=== PATIENT | male | born 1940 | race Caucasian/White ===

== ENCOUNTER 2020-08-24 18:20 | Emergency (ER) | payer MEDICARE ==
[2020-08-24] MEDS ORDERED: HYDROmorphone 1 MG/ML Syringe IM ONE (18:30)
--- NOTE | 2020-08-24 19:02 | EDM.PDOC ---
ED HPI GENERAL MEDICAL PROBLEM - General Chief Complaint: Upper Extremity Injury/Pain Stated Complaint: FALL INJURE RIGHT SHOULDER Time Seen by Provider: 08/24/20 18:23 Source of Information: Reports: Patient History Limitations: Reports: No Limitations - History of Present Illness INITIAL COMMENTS - FREE TEXT/NARRATIVE: Santos is an 80-year-old male presenting to the ED with deformity and pain in his right shoulder. The patient was playing pickle ball today at his local religion with friends and apparently was running back to play a live ball when he tripped falling on an outstretched right arm. He has significant deformity of the shoulder consistent with an anterior dislocation. He denies any numbness or tingling. His pain is an 8 out of 10. He has limited range of motion since the fall. Denies any other injuries. Patient does have a history significant for diabetes which he is on oral medication for, hypertension, hyperlipidemia but denies any history of smoking, heart disease, lung disease, or liver disease. He last ate a snack about 2 hours ago and last drink water about 30 minutes ago. Right Arm Pain Score (Numeric/FACES): 8 - Related Data Allergies Allergy/AdvReac Type Severity Reaction Status Date / Time lisinopril Allergy Cannot Verified 08/24/20 18:37 Remember losartan [Losartan] Allergy Cannot Verified 08/24/20 18:37 Remember Home Meds: Home Meds Citalopram [Celexa] 10 mg PO DAILY 10/07/16 [History] Hydrochlorothiazide 39.5 mg PO BID 10/07/16 [History] LORazepam 0.5 mg PO TID PRN 10/07/16 [History] Mirtazapine 7.5 mg PO DAILY 10/07/16 [History] Omeprazole 20 mg PO DAILY 10/07/16 [History] Simvastatin [Zocor] 80 mg PO ASDIRECTED 10/07/16 [History] Zolpidem Tartrate [Ambien] 10 mg PO QPM PRN 10/07/16 [History] atenoloL [Atenolol] 50 mg PO DAILY 10/07/16 [History] Past Medical History HEENT History: Reports: Impaired Vision, Other (See Below) Other HEENT History: CRVO-central retinal venous obstruction Cardiovascular History: Reports: High Cholesterol, Hypertension Musculoskeletal History: Reports: Fracture Neurological History: Reports: Migraines Psychiatric History: Reports: Depression Endocrine/Metabolic History: Reports: Diabetes, Type II - Past Surgical History HEENT Surgical History: Reports: Tonsillectomy Musculoskeletal Surgical History: Reports: Knee Replacement Social & Family History - Tobacco Use Tobacco Use Status *Q: Never Tobacco User - Caffeine Use Caffeine Use: Reports: Coffee - Recreational Drug Use Recreational Drug Use: No Review of Systems - Review of Systems Review Of Systems: See Below Constitutional: Reports: No Symptoms 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.) Ears: Reports: No Symptoms Nose: Reports: No Symptoms Mouth/Throat: Reports: No Symptoms Respiratory: Reports: No Symptoms Cardiovascular: Reports: No Symptoms GI/Abdominal: Reports: No Symptoms Genitourinary: Reports: No Symptoms Musculoskeletal: Reports: Shoulder Pain (Right shoulder) Skin: Reports: No Symptoms Neurological: Reports: No Symptoms Psychiatric: Reports: No Symptoms ED EXAM, GENERAL - Physical Exam Exam: See Below Exam Limited By: No Limitations General Appearance: Alert, Anxious, Mild Distress Head: Atraumatic, Normocephalic Neck: Normal Inspection, Supple, Non-Tender Respiratory/Chest: No Respiratory Distress, Lungs Clear, Normal Breath Sounds Cardiovascular: Normal Peripheral Pulses, Regular Rate, Rhythm, No Murmur Peripheral Pulses: 2+: Radial (L), Radial (R) Extremities: Normal Capillary Refill, Limited Range of Motion (Obvious deformity consistent with a right anterior shoulder dislocation. Significant reduction of range of motion due to pain.) Neurological: Alert, Oriented, Normal Cognition, No Motor/Sensory Deficits Psychiatric: Normal Affect, Normal Mood Skin Exam: Warm, Dry, Intact, Normal Color ED TRAUMA EXTREMITY PROCEDURES - Joint Reduction Right Shoulder Sedation: Conscious Sedation Pre-Procedure NV Status: Normal Post-Procedure NV Status: Normal Technique: Other (Allen maneuver) Number of Attempts: 1 Post-Reduction Imaging: Completely Reduced, No Fracture Seen Joint Reduction Complications: No - Splinting Right Upper Extremity Pre-Procedure NV Status: Normal Post-Procedure NV Status: Normal Splint Material: Velcro Splint Design: Other (Shoulder immobilizer) Applied & Form Fitted By: Provider, Nurse Provider Post-Splint Application NV Check: NV Status Normal, Good Position Complications: No Course - Vital Signs Last Recorded V/S: Last Vital Signs Temp 36.1 C 08/24/20 19:27 Pulse 49 L 08/24/20 19:49 Resp 14 08/24/20 19:49 BP 167/80 H 08/24/20 19:49 Pulse Ox 96 08/24/20 19:49 - Orders/Labs/Meds Orders: Active Orders 24 hr Category Date Time Status Shoulder 1V Rt [CR] Stat Exams 08/24/20 18:24 Taken Shoulder 1V Rt [CR] Stat Exams 08/24/20 19:35 Taken Sodium Chloride 0.9% [Saline Flush] Med 08/24/20 19:12 Active 10 ml FLUSH ASDIRECTED PRN Saline Lock Insert [OM.PC] Routine Oth 08/24/20 19:12 Ordered Medication Orders Sodium Chloride (Saline Flush) 10 ml FLUSH ASDIRECTED PRN PRN Reason: Keep Vein Open Last Admin: 08/24/20 19:45 Dose: 10 ml Documented by: ANN Meds: Medications Generic Name Dose Route Start Last Admin Trade Name Freq PRN Reason Stop Dose Admin Sodium Chloride 10 ml 08/24/20 19:12 08/24/20 19:45 Saline Flush FLUSH 10 ml ASDIRECTED PRN Administration Keep Vein Open Discontinued Medications Generic Name Dose Route Start Last Admin Trade Name Freq PRN Reason Stop Dose Admin Hydromorphone HCl 1 mg 08/24/20 18:30 08/24/20 18:35 Dilaudid IM 08/24/20 18:31 1 mg ONETIME ONE Administration Propofol Confirm 08/24/20 19:40 Diprivan 20 Ml Administered 08/24/20 19:41 Dose 200 mg .ROUTE .[facility] - Radiology Interpretation Free Text/Narrative:: 1 view shoulder x-ray shows anterior dislocation of the shoulder. - Re-Assessments/Exams Free Text/Narrative Re-Assessment/Exam: 08/24/20 18:45 Santos was given 1 mg Dilaudid IM and we waited approximately 10 to 15 minutes before proceeding with an attempt to reduce the shoulder using the Allen maneuver. Unfortunately, this was unsuccessful partly due to spasm of the pectoralis major muscle. We will proceed with conscious sedation with the assist of anesthesiology to attempt to reduce this. 08/24/20 19:43 with the help from Varinder from anesthesia, we are able to provide conscious sedation and successfully reduce the shoulder using Allen maneuver. The patient was placed in a shoulder immobilizer. We will have the patient follow-up with Dr. Fuchs next week. The patient may take the shoulder immobilizer off to shower but when up and active should have it in place. Pain control with Tylenol. Indications to return to the ED were discussed and after full recovery from conscious sedation the patient was discharged in satisfactory condition. Departure - Departure Time of Disposition: 20:03 Disposition: Home, Self-Care 01 Condition: Good Clinical Impression: Anterior shoulder dislocation Qualifiers: Encounter type: initial encounter Laterality: right Qualified Code(s): S43.014A - Anterior dislocation of right humerus, initial encounter - Discharge Information *PRESCRIPTION DRUG MONITORING PROGRAM REVIEWED*: Not Applicable *COPY OF PRESCRIPTION DRUG MONITORING REPORT IN PATIENT ANGIE: Not Applicable Instructions: Shoulder Dislocation Referrals: PCP,None [Primary Care Provider] - Forms: ED Department Discharge Care Plan Goals: You should wear the shoulder immobilizer when up and around. Avoid use of the right upper extremity until cleared by Dr. Fuchs and orthopedic surgery. I would like you to follow-up with him next week. You may take Tylenol for pain control. Should you develop any numbness or tingling, blueness in the arm, or coolness in the arm please return to the ED immediately. Sepsis Event Note (ED) - Evaluation Sepsis Screening Result: No Definite Risk - Focused Exam Vital Signs: Vital Signs Temp Pulse Resp BP Pulse Ox 08/24/20 19:49 49 L 14 167/80 H 96 08/24/20 19:27 36.1 C 52 L 13 147/91 H 92 L 08/24/20 18:31 35.9 C L 56 L 18 177/70 H 96 - Problem List & Annotations (1) Anterior shoulder dislocation SNOMED Code(s): 646425156 Code(s): S43.016A - ANTERIOR DISLOCATION OF UNSPECIFIED HUMERUS, INIT ENCNTR Status: Acute Priority: High Current Visit: Yes Qualifiers: Encounter type: initial encounter Laterality: right Qualified Code(s): S43.014A - Anterior dislocation of right humerus, initial encounter - Problem List Review Problem List Initiated/Reviewed/Updated: Yes - My Orders Last 24 Hours: My Active Orders 08/24/20 18:24 Shoulder 1V Rt [CR] Stat 08/24/20 19:12 Sodium Chloride 0.9% [Saline Flush] 10 ml FLUSH ASDIRECTED PRN Saline Lock Insert [OM.PC] Routine 08/24/20 19:35 Shoulder 1V Rt [CR] Stat - Assessment/Plan Last 24 Hours: My Active Orders 08/24/20 18:24 Shoulder 1V Rt [CR] Stat 08/24/20 19:12 Sodium Chloride 0.9% [Saline Flush] 10 ml FLUSH ASDIRECTED PRN Saline Lock Insert [OM.PC] Routine 08/24/20 19:35 Shoulder 1V Rt [CR] Stat
[2020-08-24] MEDS ORDERED: Sodium Chloride 0.9% 10 ML Syringe FLUSH PRN (19:12)
[2020-08-24] MEDS ORDERED: Propofol 200 MG/20 ML SDV ONE (19:40)
[2020-08-24 19:50] VITALS: BP 167/80; PULSE 49
--- NOTE | 2020-08-25 08:57 | CR ---
Shoulder 1V Rt, CLINICAL HISTORY: Pain, decreased range of motion FINDINGS: There is an anterior dislocation of the humerus. There is a small concavity lungs. Lateral margin of the humeral head which may be a small Hill-Sachs deformity. IMPRESSION: Anterior dislocation of the glenohumeral joint Shoulder 1V Rt, CLINICAL HISTORY: Postreduction FINDINGS: There is been reduction of the previous described dislocation. There is moderate periarticular spurring in the glenoid. Impression: Reduction of dislocation Moderate osteoarthritis
== END 2020-08-24 20:27 | disposition home or self-care (01) ==
LOC: JP.ED 18:20
DX: S43.014A Anterior dislocation of right humerus, initial encounter (principal); Z88.8 Allergy status to other drugs, medicaments and biological substances; E78.00 Pure hypercholesterolemia, unspecified; I10 Essential (primary) hypertension; E11.9 Type 2 diabetes mellitus without complications; Z79.899 Other long term (current) drug therapy; W01.0XXA Fall on same level from slipping, tripping and stumbling without subsequent striking against object, initial encounter
CPT/HCPCS: 23650; 73020; 96372; 99283; J1170; J2704; 23655

== ENCOUNTER 2024-05-24 07:22 | Inpatient (IN) | payer MEDICARE ==
[2024-05-24] MEDS: Nozin Nasal Sanitizer NASBOTH SCH ×2 (08:52→21:31)
[2024-05-24] MEDS: Lactated Ringers 1,000 ML IV SCH (08:52)
[2024-05-24] MEDS ORDERED: fentaNYL 100 MCG/2 ML SDV ONE ×2 (09:44→10:12)
[2024-05-24] MEDS ORDERED: Midazolam 1 MG/ML 2 ML SDV ONE ×2 (09:44→10:17)
[2024-05-24] MEDS ORDERED: Propofol 200 MG/20 ML SDV ONE ×2 (09:44→10:32)
[2024-05-24] MEDS ORDERED: Ondansetron 4 MG/2 ML SDV IVPUSH PRN (09:50)
[2024-05-24] MEDS ORDERED: Magnesium Hydroxide 400 MG/5 ML Susp 30 ML Cup PO PRN (09:50)
[2024-05-24] MEDS ORDERED: Lactated Ringers 1,000 ML ONE (09:53)
[2024-05-24] MEDS: ceFAZolin 2 GM in Premix Bag 1 BAG IV ONE (09:55)
[2024-05-24] MEDS ORDERED: ceFAZolin 2 GM in Sodium Chloride 0.9% 50 ML IV SCH (10:00)
[2024-05-24] MEDS ORDERED: Sodium Chloride 0.9% 1,000 ML IV SCH (10:00)
[2024-05-24] MEDS ORDERED: Non-Formulary Medication 1 Each (Fluorometholone [Fluorometholone 0.1% Ophth Susp] 10 ML B EYERT SCH (10:00)
[2024-05-24] MEDS ORDERED: Non-Formulary Medication 1 Each (Simvastatin [Zocor] 80 MG Tablet) PO SCH (10:00)
[2024-05-24] MEDS: Bupivacaine 0.5% 50 ML MDV ONE (10:36)
[2024-05-24] MEDS: oxyCODONE 5 MG Tab PO PRN (14:45)
[2024-05-24] MEDS: Sodium Chloride 0.9% 1,000 ML IV SCH (14:45)
[2024-05-24] MEDS: Ketorolac 15 MG/ML SDV IVPUSH PRN (15:26)
[2024-05-24] MEDS: Acetaminophen 325 MG Tab PO SCH (17:01)
[2024-05-24] MEDS: Sodium Chloride 0.9% 500 ML IV ONE (17:05)
[2024-05-24] MEDS: ceFAZolin 2 GM in Water For Injection, Sterile 20 ML IV SCH (18:13)
[2024-05-24] MEDS: Potassium Chloride 20 MEQ Tab.ER PO SCH (18:17)
[2024-05-24] MEDS ORDERED: Hydrochlorothiazide 25 MG Tab PO SCH (21:00)
[2024-05-24] MEDS ORDERED: Latanoprost 0.005% Ophth Soln 2.5 ML Bottle EYEBOTH SCH (21:00)
[2024-05-24] MEDS: LUMIGAN 0.01% OPTH SOLN EYEBOTH SCH (21:29)
[2024-05-24] MEDS: ClonazePAM 0.5 MG Tab PO PRN (21:31)
[2024-05-24] MEDS: Mirtazapine 15 MG Tab PO SCH (21:32)
[2024-05-24] MEDS: Morphine 2 MG/ML SYRINGE IV PRN (23:49)
[2024-05-25 05:50] LABS: HEMATOCRIT 29.4 % (38.4-49.7); HEMOGLOBIN 10.2 g/dL (12.9-16.9); MEAN CORPUSCULAR HEMOGLOBIN 30.3 pg (31.6-35.5); MEAN CORPUSCULAR HGB CONC 34.7 g/dL (31.6-35.5); MEAN CORPUSCULAR VOLUME 87.2 fL (81.4-99.0); RED BLOOD CELL COUNT 3.37 M/uL (4.14-5.76); WHITE BLOOD CELL COUNT,WBC 7.3 K/uL (3.2-11.0)
[2024-05-25] MEDS: metFORMIN 500 MG Tab PO SCH (07:33)
[2024-05-25] MEDS: Pantoprazole 40 MG Tab.CR PO SCH (07:33)
[2024-05-25] MEDS: Aspirin 325 MG Tab.EC PO SCH (08:51)
[2024-05-25] MEDS: Furosemide 20 MG Tab PO SCH (08:52)
[2024-05-25] MEDS: atorvaSTATin 10 MG Tab PO SCH (08:52)
[2024-05-25] MEDS: DULoxetine 30 MG Cap PO SCH (08:53)
[2024-05-25] MEDS: Hydrochlorothiazide 12.5 MG Cap PO SCH (08:54)
[2024-05-25] MEDS: Atenolol 25 MG Tab PO SCH (08:55)
[2024-05-25] MEDS ORDERED: metFORMIN 500 MG Tab PO SCH (09:00)
[2024-05-25] MEDS ORDERED: Non-Formulary Medication 1 Each (Omeprazole [Omeprazole] 20 MG Cap.Cr) PO SCH (09:00)
[2024-05-25] MEDS ORDERED: Non-Formulary Medication 1 Each (Bimatoprost [Lumigan 0.01% Ophth Soln] 2.5 ML Bottle) EYEBOTH SCH (09:00)
[2024-05-25] MEDS ORDERED: Non-Formulary Medication 1 Each (Duloxetine [Cymbalta] 60 MG Cap) PO SCH (09:00)
[2024-05-25] MEDS ORDERED: Non-Formulary Medication 1 Each (Atenolol [Atenolol] 50 MG Tablet) PO SCH (09:00)
[2024-05-25] MEDS ORDERED: Hydrochlorothiazide 25 MG Tab PO SCH (09:00)
[2024-05-25 11:14] LABS: CREATININE 1.4 mg/dL (0.8-1.3); EST CRCL DRUG DOSING (CG) 40.94 mL/min
[2024-05-25] MEDS: Docusate Sodium 100 MG Cap PO PRN (13:29)
[2024-05-25] MEDS: Ketorolac 15 MG/ML SDV IVPUSH PRN (14:19)
[2024-05-25] MEDS ORDERED: Mirtazapine 15 MG Tab PO SCH (21:00)
[2024-05-26] MEDS ORDERED: Sodium Chloride 0.9% 10 ML Syringe IV PRN (10:50)
[2024-05-27 05:57] LABS: BASOPHILS PERCENT AUTO 0.1 % (0.1-1.3); EOSINOPHILS PERCENT AUTO 1.2 % (0.0-5.4); HEMATOCRIT 27.1 % (38.4-49.7); HEMOGLOBIN 9.4 g/dL (12.9-16.9); IMMATURE GRAN ABSOLUTE AUTO 0.03 K/uL (0.00-0.23); IMMATURE GRAN PERCENT AUTO 0.3 % (0.0-0.7); LYMPHOCYTES ABSOLUTE AUTO 1.69 K/uL (0.8-3.3); LYMPHOCYTES PERCENT AUTO 19.5 % (11.4-47.7); MEAN CORPUSCULAR HGB CONC 34.7 g/dL (31.6-35.5); MEAN CORPUSCULAR VOLUME 86.6 fL (81.4-99.0); MONOCYTES PERCENT AUTO 10.4 % (3.3-12.6); NEUTROPHILS ABSOLUTE AUTO 5.95 K/uL (1.0-7.6); NEUTROPHILS PERCENT AUTO 68.5 % (40.0-78.1); PLATELET COUNT,PLT 151 K/uL (130-375); RED BLOOD CELL COUNT 3.13 M/uL (4.14-5.76); WHITE BLOOD CELL COUNT,WBC 8.7 K/uL (3.2-11.0)
[2024-05-27 06:00] LABS: BASOPHILS ABSOLUTE AUTO 0.01 K/uL (0.00-0.10)
[2024-05-27 06:28] LABS: A/G RATIO 0.8 (1.2-2.2); ALANINE AMINOTRANSFERASE,ALT 17 U/L (12-78); ALBUMIN 2.6 g/dL (3.4-5.0); ALKALINE PHOSPHATASE 44 U/L (46-116); ASPARTATE AMNIOTRANSFERASE,AST 24 U/L (15-37); BILIRUBIN TOTAL 0.9 mg/dL (0.2-1.0); BLOOD UREA NITROGEN,BUN 22 mg/dL (7-18); CALCIUM 8.8 mg/dL (8.5-10.1); CARBON DIOXIDE,CO2 30 mmol/L (21-32); CHLORIDE,CL 94 mmol/L (100-108); CREATININE 1.2 mg/dL (0.8-1.3); EST CRCL DRUG DOSING (CG) 47.76 mL/min; ESTIMATED GFR 59 mL/min (>60); GLUCOSE RANDOM 132 mg/dL (74-106); POTASSIUM,K 3.3 mmol/L (3.6-5.2); PROTEIN TOTAL,TP 5.7 g/dL (6.4-8.2); SODIUM,NA 133 mmol/L (140-148); TSH ULTRASENSITIVE 2.132 uIU/mL (0.358-3.740)
[2024-05-27 06:29] LABS: ANION GAP 12.3 mmol/L (5.0-14.0)
[2024-05-27] MEDS: Sodium Chloride 0.9% 60 ML IV SCH (13:22)
[2024-05-27] MEDS: Sodium Chloride 0.9% 10 ML Syringe FLUSH ONE (13:23)
[2024-05-27] MEDS: Iopamidol 612 MG/ML 100 ML Bottle IV ONE (13:23)
[2024-05-28 06:06] LABS: BASOPHILS PERCENT AUTO 0.3 % (0.1-1.3); EOSINOPHILS ABSOLUTE AUTO 0.15 K/uL (0.00-0.40); EOSINOPHILS PERCENT AUTO 1.9 % (0.0-5.4); HEMATOCRIT 34.2 % (38.4-49.7); HEMOGLOBIN 11.8 g/dL (12.9-16.9); IMMATURE GRAN PERCENT AUTO 0.3 % (0.0-0.7); LYMPHOCYTES ABSOLUTE AUTO 1.43 K/uL (0.8-3.3); LYMPHOCYTES PERCENT AUTO 18.3 % (11.4-47.7); MEAN CORPUSCULAR HEMOGLOBIN 29.8 pg (31.6-35.5); MEAN CORPUSCULAR HGB CONC 34.5 g/dL (31.6-35.5); MEAN CORPUSCULAR VOLUME 86.4 fL (81.4-99.0); MONOCYTES ABSOLUTE AUTO 0.84 K/uL (0.20-0.90); MONOCYTES PERCENT AUTO 10.7 % (3.3-12.6); NEUTROPHILS ABSOLUTE AUTO 5.36 K/uL (1.0-7.6); NEUTROPHILS PERCENT AUTO 68.5 % (40.0-78.1); PLATELET COUNT,PLT 181 K/uL (130-375); RED BLOOD CELL COUNT 3.96 M/uL (4.14-5.76); WHITE BLOOD CELL COUNT,WBC 7.8 K/uL (3.2-11.0)
[2024-05-28 06:12] LABS: BASOPHILS ABSOLUTE AUTO 0.02 K/uL (0.00-0.10); IMMATURE GRAN ABSOLUTE AUTO 0.02 K/uL (0.00-0.23)
[2024-05-28 11:15] VITALS: BP 146/64; PULSE 86
== END 2024-05-28 12:15 | disposition home or self-care (01) | DRG 470 ==
LOC: JP.SDS 07:22 → JP.MS 09:50 → JP.SDS 05-25 08:52 → JP.MS 05-25 08:52
PROVIDERS: ADMIT Specialist; ATTEND Specialist
PROC: 0SRB02A Replacement of Left Hip Joint with Metal on Polyethylene Synthetic Substitute, Uncemented, Open Approach (ICD-10-PCS; principal; 2024-05-24 08:30)
DX: M16.12 Unilateral primary osteoarthritis, left hip (principal); I13.0 Hypertensive heart and chronic kidney disease with heart failure and stage 1 through stage 4 chronic kidney disease, or unspecified chronic kidney disease; I50.32 Chronic diastolic (congestive) heart failure; E86.0 Dehydration; E11.22 Type 2 diabetes mellitus with diabetic chronic kidney disease; K21.9 Gastro-esophageal reflux disease without esophagitis; N18.31 Chronic kidney disease, stage 3a; F41.1 Generalized anxiety disorder; F32.9 Major depressive disorder, single episode, unspecified; G47.00 Insomnia, unspecified; G43.909 Migraine, unspecified, not intractable, without status migrainosus; H54.7 Unspecified visual loss; E78.00 Pure hypercholesterolemia, unspecified; I95.1 Orthostatic hypotension; Z88.8 Allergy status to other drugs, medicaments and biological substances; Z79.84 Long term (current) use of oral hypoglycemic drugs; Z98.49 Cataract extraction status, unspecified eye; Z79.899 Other long term (current) drug therapy; Z90.49 Acquired absence of other specified parts of digestive tract; Z96.659 Presence of unspecified artificial knee joint; Z98.890 Other specified postprocedural states; Z89.022 Acquired absence of left finger(s); Z79.82 Long term (current) use of aspirin
CPT/HCPCS: 01214-QZ; 36415; 36430; 70450; 70450-26; 71260; 71260-26; 72170; 72170-26; 74177; 74177-26; 80053; 82565; 82947; 84443; 85018; 85025; 85027; 86850; 86900; 86901; 86920; 86922; 97110-GP; 97116-GP; 97161-GP; 97165-GO; 97530-GP; 99232; 99233; A9270-GY; C1713; C1776; J0665; J0690; J1885; J2250; J2270; J2704; J3010; J3490; J7030; J7040; J7120; P9016; Q9967